=== PATIENT | male | born 1990 | race Caucasian/White ===

== ENCOUNTER 2023-07-22 23:11 | Emergency (ER) | payer OTHER ==
[2023-07-22 23:21] VITALS: BP 158/99; PULSE 100; RESP 20; TEMP 97.9; BMI 30.8
[2023-07-23] MEDS ORDERED: IBUPROFEN 600 MG TABLET (FP) PO ONE (00:27)
[2023-07-23] MEDS ORDERED: guaiFENesin/D-METHORPHAN HB 10 ML UNIT-DOSE CUPS ONE (00:27)
[2023-07-23] MEDS: IBUPROFEN 600 MG TABLET (FP) PO ONE (00:28)
[2023-07-23] MEDS: guaiFENesin/D-METHORPHAN HB 10 ML UNIT-DOSE CUPS PO ONE (00:28)
== END 2023-07-23 00:33 | disposition home or self-care (01) ==
LOC: JERFT 23:11
DX: R50.9 Fever, unspecified (principal); R05.9 Cough, unspecified; J02.9 Acute pharyngitis, unspecified; J10.1 Influenza due to other identified influenza virus with other respiratory manifestations; Z20.822 Contact with and (suspected) exposure to COVID-19
CPT/HCPCS: 0241U-QW; 87651; 99283-25